=== PATIENT | male | born 1995 | race Caucasian/White ===

== ENCOUNTER 2016-07-11 06:51 | Emergency (ER) | payer SELFPAY ==
[~2016-07-11 06:51] MED LIST: ACETAMINOPHEN-C1 TA PO; ADDER; ADDERAL; AUGMENTIN 500-11 TAB PO; BACTRIM DS TABL1 TAB PO; FOCALIN XR20 MG PO; FOCALIN10 MG PO; IBUPROFEN100 MG; NORCO 5/325 TAB1 TAB PO; ZOFRAN ODT4 MG/UDTAB PO; [UNRECOGNIZED DRUG - REMARK]
[2016-07-11] MEDS ORDERED: NO HOME MEDICATION XX (07:04)
[2016-07-11] MEDS ORDERED: NORCO 5-325 TA1 EACH PO (07:51)
== END 2016-07-11 08:10 ==
LOC: EDMED 06:51
DX: S93.402A Sprain of unspecified ligament of left ankle, initial encounter (principal); X50.1XXA Overexertion from prolonged static or awkward postures, initial encounter; Y93.39 Activity, other involving climbing, rappelling and jumping off; Y92.89 Other specified places as the place of occurrence of the external cause; Y99.8 Other external cause status; F17.200 Nicotine dependence, unspecified, uncomplicated